=== PATIENT | female | born 1930 | race Caucasian/White ===

== ENCOUNTER → 2017-02-09 | Outpatient (CLI) | payer MEDICARE, OTHER ==
[~2017-02-09] MED LIST: APRESOLINE 25MG25 MG PO; ASPIRIN 81M81 MG/TA2 PO; CALCIUM 600 PLU1 TAB PO; CLARITIN 1010 MG/TAB PO; FLOVENT DI50 MCG/Act IH; HYGROTON25 MG PO; MASON NATURAL1000 IU PO; MULTI VITAMINS1 TAB PO; NORCO 325 MG-51 TAB PO; PRINIVIL5 MG PO; SALINE MIST 4545 ML NS; XANAX .25M0.25 MG/TA PO; ZANTAC 150MG T150 MG PO; ZOCOR 40MG40 MG PO
== END ==
LOC: MC.RAD 09:48
DX: Z12.31 Encounter for screening mammogram for malignant neoplasm of breast (principal); N63 Unspecified lump in breast

== ENCOUNTER → 2017-02-10 | Outpatient (CLI) | payer MEDICARE, OTHER | LOC: MC.RAD 12:56 | DX: D48.62 Neoplasm of uncertain behavior of left breast (principal) ==

== ENCOUNTER → 2017-02-16 | Outpatient (CLI) | payer MEDICARE, OTHER | LOC: MC.RAD 08:00 | DX: N63 Unspecified lump in breast (principal) ==

== ENCOUNTER 2017-03-04 06:41 | Day surgery (SDC) | payer MEDICARE, OTHER ==
[~2017-03-04] VITALS: Ht 160 cm; Wt 60.0 kg
[2017-03-04] VITALS (10 sets, daily range): BP systolic 118–144; BP diastolic 42–94; PULSE 47–85; TEMP 97.2–100
[~2017-03-04 06:41] MED LIST changes: -ASPIRIN 81M81 MG/TA2 PO; -CALCIUM 600 PLU1 TAB PO; -CLARITIN 1010 MG/TAB PO; -FLOVENT DI50 MCG/Act IH; -MASON NATURAL1000 IU PO; -MULTI VITAMINS1 TAB PO; -NORCO 325 MG-51 TAB PO; -SALINE MIST 4545 ML NS; -ZANTAC 150MG T150 MG PO
[2017-03-04] MEDS ORDERED: ASPIRIN 81M81 MG/TA2 PO (07:16)
[2017-03-04] MEDS ORDERED: CALCIUM 600 PLU1 TAB PO (07:17)
[2017-03-04] MEDS ORDERED: MASON NATURAL1000 IU PO (07:18)
[2017-03-04] MEDS ORDERED: CLARITIN 1010 MG/TAB PO (07:19)
[2017-03-04] MEDS ORDERED: FLOVENT DI50 MCG/Act IH (07:19)
[2017-03-04] MEDS ORDERED: MULTI VITAMINS1 TAB PO (07:20)
[2017-03-04] MEDS ORDERED: ZANTAC 150MG T150 MG PO (07:20)
[2017-03-04] MEDS ORDERED: ZOCOR 40MG40 MG PO (07:21)
[2017-03-04] MEDS ORDERED: SALINE MIST 4545 ML NS (07:21)
[2017-03-05 02:03] VITALS: BP 110/49; PULSE 66; TEMP 98.3
[2017-03-05 05:06] VITALS: BP 117/73; PULSE 62; TEMP 98.1
[2017-03-05 10:34] VITALS: BP 149/76; PULSE 77; TEMP 98
[2017-03-05 13:56] VITALS: BP 130/54; PULSE 65; TEMP 97.6
[2017-03-05] MEDS ORDERED: NORCO 325 MG-51 TAB PO (16:53)
== END 2017-03-05 18:15 | disposition home or self-care (01) ==
LOC: SDCO 06:41 → SURG 13:30 → SDCO 03-05 18:15
DX: C50.412 Malignant neoplasm of upper-outer quadrant of left female breast (principal); Z17.1 Estrogen receptor negative status [ER-]; I12.9 Hypertensive chronic kidney disease with stage 1 through stage 4 chronic kidney disease, or unspecified chronic kidney disease; N18.3 Chronic kidney disease, stage 3 (moderate); K21.9 Gastro-esophageal reflux disease without esophagitis
CPT/HCPCS: OP; A9284; A9541; J0690; J1100; J1170; J2250; J2405; J2704; J2795; J3010; J7030; J7120

== ENCOUNTER 2017-06-02 19:26 | Emergency (ER) | payer MEDICARE, OTHER ==
[~2017-06-02] VITALS: Ht 160 cm; Wt 59.5 kg
[~2017-06-02 19:26] MED LIST changes: +ASPIRIN 81M81 MG/TA2 PO; +CALCIUM 600 PLU1 TAB PO; +CLARITIN 1010 MG/TAB PO; +FLOVENT DI50 MCG/Act IH; +MASON NATURAL1000 IU PO; +MULTI VITAMINS1 TAB PO; +NORCO 325 MG-51 TAB PO; +SALINE MIST 4545 ML NS; +ZANTAC 150MG T150 MG PO
[2017-06-02 19:37] VITALS: TEMP 98.7
[2017-06-02 21:52] LABS: BASO % 0.1 % (0.0-2.0); EOS % 0.3 % (0-4.0); GRAN # 8.1 (1.4-6.5); GRAN % 88.7 % (42.2-75.2); HEMOGLOBIN 13.1 g/dl (12.5-16.0); LYMPH # 0.7 (1.2-3.4); LYMPH % 7.1 % (20.0-51.0); MEAN CELL VOLUME 92 fl (80.0-100.0); MEAN CORPUSCULAR HEMOGLOBIN 30 pg (27.0-31.0); MEAN CORPUSCULAR HGB CONC 33 g/dl (33.0-37.0); MEAN PLATELET VOLUME 11.5 fl (7.4-10.4); MONO # 0.3 (0.1-0.6); MONO % 3.1 % (1.7-9.3); PLATELET COUNT 152 K/mm3 (130-400); RED BLOOD COUNT 4.36 M/mm3 (4.10-5.30); REDCELL DISTRIBUTION WIDTH-CV 12.7 % (11.5-14.5); WHITE BLOOD COUNT 9.1 K/mm3 (4.8-10.8)
[2017-06-02 22:07] LABS: CALCIUM 10.2 mg/dL (8.4-10.2); CREATININE, serum 1.6 mg/dL (0.52-1.25); POTASSIUM 4.6 mmol/L (3.4-5.0)
[2017-06-03 01:29] VITALS: BP 179/97; PULSE 99
== END 2017-06-03 01:25 | disposition short-term general hospital (02) ==
LOC: COL.ER 19:26
PROVIDERS: Physician Assistant
DX: S72.091A Other fracture of head and neck of right femur, initial encounter for closed fracture (principal); I10 Essential (primary) hypertension; E78.5 Hyperlipidemia, unspecified; Z85.3 Personal history of malignant neoplasm of breast; Z87.81 Personal history of (healed) traumatic fracture; Z90.710 Acquired absence of both cervix and uterus; Z90.49 Acquired absence of other specified parts of digestive tract; Z90.89 Acquired absence of other organs; Z90.12 Acquired absence of left breast and nipple; W01.0XXA Fall on same level from slipping, tripping and stumbling without subsequent striking against object, initial encounter; Y92.009 Unspecified place in unspecified non-institutional (private) residence as the place of occurrence of the external cause
CPT/HCPCS: 99223; J3010; J7040

== ENCOUNTER → 2018-04-08 | Outpatient (CLI) | payer MEDICARE, OTHER | LOC: MC.RAD 13:13 | DX: Z12.31 Encounter for screening mammogram for malignant neoplasm of breast (principal); Z98.890 Other specified postprocedural states ==

== ENCOUNTER 2018-05-04 10:47 | Day surgery (SDC) | payer MEDICARE, OTHER ==
[~2018-05-04] VITALS: Ht 160 cm; Wt 60.3 kg
[2018-05-04] MEDS ORDERED: FLONASEALLERGY NS (11:24)
[2018-05-04] MEDS ORDERED: TYLENOL 325MG325 MG PO (11:28)
[2018-05-04 11:51] VITALS: BP 172/78; PULSE 87; TEMP 98
[2018-05-04 13:57] VITALS: BP 155/78; PULSE 84; TEMP 97.6
[2018-05-04 14:12] VITALS: BP 170/88; PULSE 81
[2018-05-04 14:27] VITALS: BP 191/80; PULSE 81
[2018-05-04 14:42] VITALS: BP 192/88; PULSE 85
== END 2018-05-04 15:30 | disposition home or self-care (01) ==
LOC: SDCO 10:47
DX: C50.412 Malignant neoplasm of upper-outer quadrant of left female breast (principal); C79.2 Secondary malignant neoplasm of skin; Z79.899 Other long term (current) drug therapy; Z79.82 Long term (current) use of aspirin; I12.9 Hypertensive chronic kidney disease with stage 1 through stage 4 chronic kidney disease, or unspecified chronic kidney disease; N18.3 Chronic kidney disease, stage 3 (moderate); K21.9 Gastro-esophageal reflux disease without esophagitis; M81.0 Age-related osteoporosis without current pathological fracture; E78.00 Pure hypercholesterolemia, unspecified; Z80.0 Family history of malignant neoplasm of digestive organs; Z80.1 Family history of malignant neoplasm of trachea, bronchus and lung
CPT/HCPCS: C1788; J0690; J1644; J7120

== ENCOUNTER 2018-06-25 12:21 | Emergency (ER) | payer MEDICARE, OTHER ==
[~2018-06-25] VITALS: Ht 160 cm; Wt 60.5 kg
[~2018-06-25 12:21] MED LIST changes: +FLONASEALLERGY NS; +TYLENOL 325MG325 MG PO
[2018-06-25 12:24] VITALS: TEMP 98.7
[2018-06-25 13:48] LABS: BASO % 0.4 % (0.0-2.0); EOS % 0.1 % (0-4.0); GRAN # 5.7 (1.4-6.5); GRAN % 79.3 % (42.2-75.2); HEMOGLOBIN 10.5 g/dl (12.5-16.0); LYMPH # 1.2 (1.2-3.4); MEAN CELL VOLUME 93 fl (80.0-100.0); MEAN CORPUSCULAR HEMOGLOBIN 30 pg (27.0-31.0); MEAN CORPUSCULAR HGB CONC 32 g/dl (33.0-37.0); MEAN PLATELET VOLUME 12.2 fl (7.4-10.4); MONO # 0.3 (0.1-0.6); MONO % 3.6 % (1.7-9.3); PLATELET COUNT 153 K/mm3 (130-400); RED BLOOD COUNT 3.47 M/mm3 (4.10-5.30); REDCELL DISTRIBUTION WIDTH-CV 14.6 % (11.5-14.5)
[2018-06-25 13:50] LABS: HEMATOCRIT 32.4 % (37.0-47.0)
[2018-06-25 13:58] LABS: ALBUMIN 3.7 gm/dL (3.5-5.0); BILIRUBIN,TOTAL 0.4 mg/dL (0.0-1.0); CALCIUM 8.6 mg/dL (8.4-10.2); CREATININE, serum 1.52 mg/dL (0.52-1.25); POTASSIUM 4.7 mmol/L (3.4-5.0); TOTAL PROTEIN 6.3 gm/dL (6.4-8.2)
[2018-06-25] MEDS ORDERED: CEPHALEXIN250 MG/5 M PO ×3 (15:23→16:11)
[2018-06-25 16:50] VITALS: BP 156/68; PULSE 68
== END 2018-06-25 16:51 | disposition home or self-care (01) ==
LOC: COL.ER 12:21
PROVIDERS: Family Medicine
DX: R13.10 Dysphagia, unspecified (principal); C50.919 Malignant neoplasm of unspecified site of unspecified female breast; Z79.51 Long term (current) use of inhaled steroids
CPT/HCPCS: J0696; J1100; J7040; Q9967